=== PATIENT | male | born 1960 | race Caucasian/White ===

== ENCOUNTER 2017-04-25 17:22 | Emergency (ER) | payer BC ==
[2017-04-25 17:24] VITALS: PULSE 80; RESP 20; TEMP 98; O2SAT 96
[2017-04-25] MEDS ORDERED: SODIUM CHLORIDE 0.9% FLUSH 10 ML FLUSH IV FLUSH PRN (17:45)
--- NOTE | 2017-04-25 17:52 | PD ---
HPI Chief Complaint: Abdominal Pain Time Seen by Provider: 17:37 Travel History International Travel<30 days: No Contact w/Intl Traveler<30days: No Traveled to known affect area: No History of Present Illness HPI 56-year-old male who since this morning has had left lower quadrant abdominal pain, a total of about 10 hours. The onset was gradual however it has gradually worsened. He dribbles of severe pain are reported. No hematuria nausea or vomiting. The patient did have multiple episodes of loose stool yesterday however without any pain. There is no radiation of the pain. It's worse with palpation. PFSH Social History Tobacco Use: No Allergies-Medications (Allergen,Severity, Reaction): Coded Allergies: codeine (Verified Allergy, Unknown, CRAMPING, 04/25/17) promethazine (Verified Allergy, Unknown, CONVULSIONS, 04/25/17) Reported Meds & Prescriptions Reported Meds & Active Scripts Active Bentyl (Dicyclomine HCl) 10 Mg Cap 10 Mg PO TID PRN Reported Vitamin D (Cholecalciferol) 2,000 Unit Cap 1 Tab PO DAILY Calcium (Oyster Shell) 500 Mg Calcium (1250 Mg) Tab 1 Tab PO DAILY Vitamin C (Ascorbic Acid) 1,000 Mg Tablet.er 1 Tab PO DAILY Multiple Vitamin 1 Tab 1 Tab PO DAILY Travatan Z Opth Drops (Travoprost) 0.004 % Soln 1 Drop EACH EYE HS Timolol Opth Drops 0.5 % Soln 1 Drop EACH EYE DAILY Aspirin 81 Mg Chew 81 Mg PO DAILY Nasra-D 24 Hour Allergy (Fexofenadine-Pseudoephedrine ER 24 HR) 180-240 Mariano 1 Tab PO DAILY Prilosec (Omeprazole Magnesium) 20 Mg Tab 1 Tab PO DAILY Diovan (Valsartan) 160 Mg Tab 160 Mg PO DAILY Review of Systems Except as stated in HPI: all other systems reviewed are Neg HENT: No: Headaches Cardiovascular: No: Chest Pain or Discomfort Physical Exam Narrative GENERAL: 56-year-old male well-nourished and well-developed speaking in full sentences SKIN: Warm and dry. HEAD: Atraumatic. Normocephalic. EYES: Pupils equal and round. No scleral icterus. No injection or drainage. ENT: No nasal bleeding or discharge. Mucous membranes pink and moist. NECK: Trachea midline. No JVD. CARDIOVASCULAR: Regular rate and rhythm. RESPIRATORY: No accessory muscle use. Clear to auscultation. Breath sounds equal bilaterally. GASTROINTESTINAL: Soft. Minimal tenderness lateral left lower side. MUSCULOSKELETAL: Extremities without clubbing, cyanosis, or edema. No obvious deformities. NEUROLOGICAL: Awake and alert. No obvious cranial nerve deficits. Motor grossly within normal limits. Five out of 5 muscle strength in the arms and legs. Normal speech. PSYCHIATRIC: Appropriate mood and affect; insight and judgment normal. Data Data Last Documented VS Vital Signs Date Time Temp Pulse Resp B/P (MAP) Pulse Ox O2 Delivery O2 Flow Rate FiO2 04/25/17 19:06 75 20 134/72 (92) 97 04/25/17 18:16 Room Air 04/25/17 17:24 98.0 Orders Orders Complete Blood Count With Diff (04/25/17 17:40) Comprehensive Metabolic Panel (04/25/17 17:40) Lipase (04/25/17 17:40) Urinalysis - C+S If Indicated (04/25/17 17:40) Ct Abd/Pel W Iv Contrast(Rout) (04/25/17 17:40) Iv Access Insert/Monitor (04/25/17 17:40) Ecg Monitoring (04/25/17 17:40) Oximetry (04/25/17 17:40) Sodium Chloride 0.9% Flush (Ns Flush) (04/25/17 17:45) Iohexol 350 Inj (Omnipaque 350 Inj) (04/25/17 18:05) Ed Discharge Order (04/25/17 18:50) Labs Laboratory Tests Test 04/25/17 17:55 04/25/17 17:58 White Blood Count 6.6 TH/MM3 Red Blood Count 5.03 MIL/MM3 Hemoglobin 14.5 GM/DL Hematocrit 44.1 % Mean Corpuscular Volume 87.7 FL Mean Corpuscular Hemoglobin 28.9 PG Mean Corpuscular Hemoglobin Concent 32.9 % Red Cell Distribution Width 12.7 % Platelet Count 234 TH/MM3 Mean Platelet Volume 7.6 FL Neutrophils (%) (Auto) 57.1 % Lymphocytes (%) (Auto) 31.3 % Monocytes (%) (Auto) 7.8 % Eosinophils (%) (Auto) 2.4 % Basophils (%) (Auto) 1.4 % Neutrophils # (Auto) 3.7 TH/MM3 Lymphocytes # (Auto) 2.1 TH/MM3 Monocytes # (Auto) 0.5 TH/MM3 Eosinophils # (Auto) 0.2 TH/MM3 Basophils # (Auto) 0.1 TH/MM3 CBC Comment DIFF FINAL Differential Comment Blood Urea Nitrogen 22 MG/DL Creatinine 0.89 MG/DL Random Glucose 139 MG/DL Total Protein 7.1 GM/DL Albumin 3.7 GM/DL Calcium Level 8.6 MG/DL Alkaline Phosphatase 69 U/L Aspartate Amino Transf (AST/SGOT) 20 U/L Alanine Aminotransferase (ALT/SGPT) 31 U/L Total Bilirubin 0.2 MG/DL Sodium Level 140 MEQ/L Potassium Level 3.9 MEQ/L Chloride Level 105 MEQ/L Carbon Dioxide Level 27.8 MEQ/L Anion Gap 7 MEQ/L Estimat Glomerular Filtration Rate 88 ML/MIN Lipase 156 U/L Urine Color YELLOW Urine Turbidity CLEAR Urine pH 7.0 Urine Specific [place] 1.025 Urine Protein NEG mg/dL Urine Glucose (UA) NEG mg/dL Urine Ketones NEG mg/dL Urine Occult Blood NEG Urine Nitrite NEG Urine Bilirubin NEG Urine Leukocyte Esterase NEG Urine Squamous Epithelial Cells 0-5 /hpf Urine Amorphous Sediment MOD Microscopic Urinalysis Comment CULT NOT INDICATED MDM Medical Decision Making Medical Screen Exam Complete: Yes Emergency Medical Condition: Yes Medical Record Reviewed: Yes Differential Diagnosis Gastritis, pancreatitis, appendicitis, acute cholecystitis, ascending cholangitis, AAA, perforated viscous, mesenteric ischemia, hepatitis, cystitis, hydronephrosis/hydroureter/nephroureter calculus, mesenteric adenitis, biliary colic Narrative Course CBC & BMP Diagram 04/25/17 17:55 Total Protein 7.1, Albumin 3.7, Calcium Level 8.6, Alkaline Phosphatase 69, Aspartate Amino Transf (AST/SGOT) 20, Alanine Aminotransferase (ALT/SGPT) 31, Total Bilirubin 0.2 Urinalysis shows no UTI Last Impressions Abdomen/Pelvis CT 04/25/17 1740 Signed Impressions: Service Date/Time: April 17:57 - CONCLUSION: 1. Solitary nonobstructing stone lower pole left kidney. 2. No focal abnormalities of left lower quadrant. Ryan Saleem MD The patient is resting comfortably and feels better, is alert and in no distress. The patients results and examination findings were discussed. The repeat examination is unremarkable and benign. The history, exam, diagnostic testing, and current condition do not suggest any significant pathology to warrant further testing, continued ED treatment, admission, or surgical evaluation at this point. The vital signs have been stable. The patient does not have uncontrollable pain, intractable vomiting, or other significant symptoms. The patient's condition is stable and appropriate for discharge. The patient will pursue further outpatient evaluation with a primary care physician or other designated or consulting physician as indicated in the discharge instructions. The patient expressed understanding and was agreeable with this plan. Diagnosis Primary Impression: Abdominal pain Qualified Codes: R10.32 - Left lower quadrant pain Referrals: Primary Care Physician 2 days Med/Other Pt SpecificInfo: Prescription(s) given Scripts Dicyclomine (Bentyl) 10 Mg Cap 10 MG PO TID Y for Bowel Management, #10 CAP 0 Refills Prov: Jonah Jackson MD 04/25/17 Disposition: DISCHARGE HOME Condition: Stable Jonah Jackson MD Apr 25, 2017 17:52
[2017-04-25 18:05] LABS: AUTOMATED NEUTROPHIL # 3.7 TH/MM3 (1.8-7.7); BASOPHIL # 0.1 TH/MM3 (0-0.2); BASOPHIL % 1.4 % (0.0-2.0); EOSINOPHIL # 0.2 TH/MM3 (0-0.4); EOSINOPHIL % 2.4 % (0.0-4.0); HEMATOCRIT 44.1 % (39.0-51.0); HEMOGLOBIN 14.5 GM/DL (13.0-17.0); LYMPH % 31.3 % (9.0-44.0); LYMPHOCYTE # 2.1 TH/MM3 (1.0-4.8); MEAN CELL VOLUME 87.7 FL (80.0-100.0); MEAN CORPUSCULAR HEMOGLOBIN 28.9 PG (27.0-34.0); MEAN CORPUSCULAR HGB CONC 32.9 % (32.0-36.0); MEAN PLATELET VOLUME 7.6 FL (7.0-11.0); MONO % 7.8 % (0.0-8.0); MONOCYTE # 0.5 TH/MM3 (0-0.9); NEUT % 57.1 % (16.0-70.0); PLATELET COUNT 234 TH/MM3 (150-450); RED BLOOD COUNT 5.03 MIL/MM3 (4.50-5.90); RED CELL DISTRIBUTION WIDTH 12.7 % (11.6-17.2); WHITE BLOOD COUNT 6.6 TH/MM3 (4.0-11.0)
[2017-04-25] MEDS ORDERED: IOHEXOL 350 MG/ML 10 ML VIAL (for RAD DIAG) IVCONTRAST ONE (18:05)
[2017-04-25 18:06] LABS: BILIRUBIN, URINE NEG (NEG); BLOOD, URINE NEG (NEG); GLUCOSE,URINE NEG (NEG); KETONE, URINE NEG (NEG); NITRITE,URINE NEG (NEG); URINE LEUKOCYTE ESTERASE NEG (NEG)
[2017-04-25] MEDS ORDERED: ASCO100029 PO (18:06)
[2017-04-25] MEDS ORDERED: ASPI-516 PO (18:06)
[2017-04-25] MEDS ORDERED: DIOV160T6 PO (18:06)
[2017-04-25] MEDS ORDERED: TIMO0.5S30 EACH EYE (18:06)
[2017-04-25] MEDS ORDERED: MULTTAB67 PO (18:06)
[2017-04-25] MEDS ORDERED: TRAV0.00 EACH EYE (18:06)
[2017-04-25] MEDS ORDERED: VITA200013 PO (18:06)
[2017-04-25] MEDS ORDERED: CALC12502 PO (18:06)
[2017-04-25] MEDS ORDERED: PRIL20TA2 PO (18:06)
[2017-04-25] MEDS ORDERED: FEXO1TAB97 PO (18:06)
[2017-04-25 18:11] LABS: CHLORIDE 105 MEQ/L (98-107); SODIUM (NA) 140 MEQ/L (136-145)
[2017-04-25 18:12] LABS: AMORPHOUS SEDIMENT, URINE MOD; SQUAMOUS EPITHELIAL CELL URINE 0-5 /hpf (0-5); URINE COLOR YELLOW (YELLW/STRAW)
[2017-04-25 18:15] LABS: ALBUMIN 3.7 GM/DL (3.4-5.0); BICARBONATE 27.8 MEQ/L (21.0-32.0); BLOOD UREA NITROGEN 22 MG/DL (7-18); CALCIUM 8.6 MG/DL (8.5-10.1); GLUCOSE,RANDOM 139 MG/DL (74-106); LIPASE 156 U/L (73-393)
--- NOTE | 2017-04-25 18:15 | RADRPT ---
EXAM DATE/TIME: 04/25/2017 17:57 [facility] COMPARISON: No previous studies available for comparison. INDICATIONS : Left lower quadrant pain. IV CONTRAST: 85 cc Omnipaque 350 (iohexol) IV ORAL CONTRAST: No oral contrast ingested. RADIATION DOSE: 14.01 CTDIvol (mGy) MEDICAL HISTORY : Hypertension. Renal calculi. SURGICAL HISTORY : None. ENCOUNTER: Initial ACUITY: 1 day PAIN SCALE: 7/10 LOCATION: Left lower quadrant TECHNIQUE: Volumetric scanning of the abdomen and pelvis was performed. Using automated exposure control and ad justment of the mA and/or kV according to patient size, radiation dose was kept as low as reasonably achievable to obtain optimal diagnostic quality images. DICOM format image data is available electro nically for review and comparison. FINDINGS: LOWER LUNGS: The visualized lower lungs are clear. LIVER: 6 mm low density round lesion in the inferior posterior segment right lobe liver, probably representi ng a cyst. Otherwise homogeneous enhancement throughout the liver. No biliary ductal dilatation. N o calcified gallstones. SPLEEN: Normal size without lesion. PANCREAS: Within normal limits. KIDNEYS: Symmetric renal size. No evidence of hydronephrosis. There is a solitary nonobstructing 4 mm calcif ied stone lower pole left kidney. Several subcentimeter cortical cysts are present in the left kidne y. Both ureters are normal in dimension and ADRENAL GLANDS: Within normal limits. VASCULAR: There is no aortic aneurysm. BOWEL/MESENTERY: No dilated loops of small or large bowel. ABDOMINAL WALL: Within normal limits. RETROPERITONEUM: There is no lymphadenopathy. BLADDER: No wall thickening or mass. REPRODUCTIVE: Calcification in the right central zone of the prostate. Smooth margined prostate. INGUINAL: There is no lymphadenopathy or hernia. MUSCULOSKELETAL: Within normal limits for patient age. CONCLUSION: 1. Solitary nonobstructing stone lower pole left kidney. 2. No focal abnormalities of left lower quadrant. Ryan Saleem MD on April 25, 2017 at 18:09 Board Certified Radiologist. This report was verified electronically.
[2017-04-25 18:16] VITALS: RESP 17; O2SAT 95
[2017-04-25 18:18] LABS: ALT (GPT) 31 U/L (12-78); AST (GOT) 20 U/L (15-37); CREATININE 0.89 MG/DL (0.60-1.30); GLOMERULAR FILTRATION RATE 88 ML/MIN (>89)
[2017-04-25 18:20] LABS: TOTAL BILIRUBIN ADULT 0.2 MG/DL (0.2-1.0); TOTAL PROTEIN 7.1 GM/DL (6.4-8.2)
[2017-04-25 18:21] LABS: ALKALINE PHOSPHATASE 69 U/L (45-117)
[2017-04-25] MEDS ORDERED: DICY10 PO (18:49)
[2017-04-25 19:06] VITALS: BP 134/72
== END 2017-04-25 19:09 | disposition home or self-care (01) ==
LOC: PHED 17:22
DX: R10.32 Left lower quadrant pain (principal); N20.0 Calculus of kidney
CPT/HCPCS: 74177; 80053; 81001; 83690; 85025; 99284; Q9967